=== PATIENT | male | born 1945 | race Caucasian/White ===

== ENCOUNTER 2016-12-12 19:10 | Inpatient (IN) ==
[2016-12-12] MEDS ORDERED: NS 1,000 ML IV PRN (19:37)
[2016-12-12] MEDS ORDERED: ZOFRAN IV ONE (19:37)
[2016-12-12 20:09] LABS: BASO% 0.1 % (0.0-0.8); HEMATOCRIT 42.2 % (42.0-52.0); HEMOGLOBIN 13.6 g/dL (14.0-18.0); IMM GRAN# 0.04 X1000 (0.0-0.04); IMM GRAN% 0.2 % (0.0-0.5); LYMPH# 1.21 X1000 (1.2-3.4); LYMPH% 7.1 % (20.5-51.1); MANUAL DIFF NEEDED? YES; MCH 27.5 PG (27-31); MCHC 32.2 g/dL (33-37); MCV 85.4 FL (81-99); MONO# 0.54 X1000 (0.11-0.59); MONO% 3.2 % (1.7-9.3); MPV 10.6 FL (7.4-10.4); NEUT% 89.4 % (42.2-75.2); PLT 286 X1000 (130-400); RBC 4.94 XMIL (4.7-6.1)
[2016-12-12 20:28] LABS: AGAP 15; ALBUMIN 4.1 g/dL (3.5-5.0); ALKALINE PHOSPHATASE 93 U/L (32-122); BUN 12 mg/dL (8-22); CALCIUM 9.6 mg/dL (8.8-10.2); CHLORIDE 102 mmol/L (98-107); COSMO 281; GOT 13 U/L (10-34); GPT 5 U/L (10-44); POTASSIUM 4.4 mmol/L (3.5-5.1); SODIUM 140 mmol/L (136-145); TCO2 23 mmol/L (25-35); TOTAL PROTEIN 7.6 g/dL (6.3-8.3)
[2016-12-12 20:39] LABS: LYMPHS 2 % (21-51)
[2016-12-12 20:41] LABS: HYPOCHROM OCCASIONAL
[2016-12-12] MEDS ORDERED: ZOSYN 3.375 GM/NS 3.375 GM/50 ML IVPB IV ONE (20:47)
[2016-12-12] MEDS ORDERED: NS 1,000 ML IV ONE (23:26)
[2016-12-12] MEDS ORDERED: ZOFRAN PO PRN (23:26)
[2016-12-12] MEDS ORDERED: LEVAQUIN 500 MG/D5W 500 MG/100 ML IVPB IV ONE (23:26)
[2016-12-12] MEDS ORDERED: TYLENOL PO PRN (23:26)
[2016-12-12] MEDS ORDERED: MORPHINE IV PRN (23:31)
--- NOTE | 2016-12-12 23:33 | PROVIDER DOCUMENTATION ---
This chart was entered by Silke Shukla Scribe, acting as scribe for Dallin Wen MD. HPI-Abdominal Pain/GI Problem - General Chief Complaint: Shortness of Breath Stated Complaint: N/V Time Seen by Provider: 12/12/16 19:26 Source: patient Allergies/Adverse Reactions: Patient Allergies Allergy/AdvReac Type Severity Reaction Status Date / Time No Known Allergies Allergy Verified 12/12/16 19:13 Home Medications: Home Medication List Medication Instructions Recorded Confirmed Last Taken Type Albuterol [Albuterol Neb] 1 inh NEB Q6H PRN PRN 12/12/16 12/12/16 12/12/16 History Aspirin 1 tab PO DAILY 12/12/16 12/12/16 12/12/16 History Fluticasone/Salmet 250/50 INH 1 inh INH Q4H 12/12/16 12/12/16 12/12/16 History [Advair 250/50 Diskus] [place]-3 Fatty Acids/Fish Oil 1 tab PO DAILY 12/12/16 12/12/16 12/12/16 History [[place] 3 1,000 mg Softgel] - History of Present Illness-ABD Nature of Presenting Problems: Pt is a 71 year old male who came to the ED with a cc of bright red blood in the toilet after having a loose bowel movement this morning. Pt reports he has been N/V and having blood in his bowels since this morning. Pt denies fever, chest pain, and chills. Abdominal Pain Onset Location: reports: generalized abdomen Quality of Pain: reports: sharp Onset/Duration: reports: this morning Timing: reports: intermittent Activities at Onset: reports: none Modifying Factors: improves with: nothing Associated Symptoms: reports: nausea, vomiting Last BM: this evening Dark Stools Present?: reports: bright red blood Rectal Bleeding: reports: bleeding without stool Rectal Pain: reports: none Review of Systems - Adult - REVIEW OF SYSTEMS - ADULT Constitutional: denies: chills, fever Eyes: reports: no symptoms reported Ears, Nose, Mouth & Throat: reports: no symptoms reported Cardiovascular: reports: no symptoms reported Respiratory: reports: shortness of breath. denies: chronic cough, excessive sputum production Gastrointestinal: reports: abdominal pain, nausea, rectal bleeding, vomiting. denies: diarrhea, difficulty swallowing, frequent heartburn Genitourinary: denies: dysuria, frequent UTI's Musculoskeletal: reports: no symptoms reported Integumentary: reports: no symptoms reported Neurological: reports: no symptoms reported Psychiatric: reports: no symptoms reported Endocrine: reports: no symptoms reported Hematologic/Lymphatic: reports: no symptoms reported Allergic/Immunologic: reports: no symptoms reported All Other Systems: Reviewed and Negative Past History - Adult - PAST MEDICAL HISTORY-ADULT Review of Records: reports: Nursing Assessment Review Major Childhood Illnesses: reports: denies history Cardiovascular: reports: denies history Respiratory: reports: COPD Gastrointestinal: reports: denies history Obstetrical/Gynecological: reports: denies history Genitourinary: reports: denies history Musculoskeletal: reports: denies history Neurological: reports: denies history Endocrine/Immune: reports: denies history Other Conditions: reports: denies history - IMMUNIZATION STATUS Childhood Immunizations: See Nurse Assessment Flu Vaccine: See Nurse Assessment - FAMILY HISTORY Family History: reviewed, not pertinent Physical Exam-General - PHYSICAL EXAM-ADULT Initial Vital Signs Reviewed: Yes - CONSTITUTIONAL General Appearance: appears well, alert, no apparent distress - EYES Eyes: PERRL/EOMI, pink conjunctivae - HEAD, EARS, NOSE, MOUTH & THROAT HENMT: normocephalic/atraumatic, moist mucous membranes - NECK Neck: non-tender - RESPIRATORY Respiratory: chest non-tender, crackles - CARDIOVASCULAR Cardiovascular: normal peripheral pulses, regular rate, rhythm - GASTROINTESTINAL (ABDOMEN) Abdominal Exam: normal bowel sounds, non tender, soft - MUSCULOSKELETAL Back Exam: normal inspection, no CVA tenderness Extremity: normal range of motion, non-tender - SKIN Integumentary: normal color, normal turgor - NEUROLOGIC Neurologic: grossly normal - PSYCHIATRIC Psych/Mental Status: normal mood/affect, normal thought content, normal thought process, oriented x 3 Progress - PLAN OF CARE/RESULTS Progress/Plan/Lab Results: Vital Signs - 8 hr 12/12/16 19:16 Temperature 99.1 F Pulse Rate 126 H Respiratory Rate 28 H Blood Pressure 127/92 O2 Sat by Pulse Oximetry 91 L Orders Category Date Time Status FLAT/UPRIGHT ABD/1 VIEW CHEST [RAD] Stat Exams 12/12/16 19:37 Ordered BNP [PRO B-NATRIURETIC PEPTIDE] Stat Lab 12/12/16 19:36 Ordered CBC WITH DIFF [HEME] Stat Lab 12/12/16 19:37 Ordered COMPREHENSIVE METABOLIC PANEL [CHEM] Stat Lab 12/12/16 19:37 Ordered TROPONIN T Stat Lab 12/12/16 19:37 Ordered 0.9% Sodium Chloride Inj [Ns] 1,000 ml Med 12/12/16 19:37 Active IV 250 mls/hr Ondansetron [Zofran] Med 12/12/16 19:37 Discontinued 4 mg IV NOW ONE EKG [EKG] Stat Ther 12/12/16 19:37 Ordered Result Diagrams: 12/12/16 19:55 12/12/16 19:55 - EKG 1 Time of EKG reading by physician:: 19:49 EKG Read and Signed by:: Dallin Wen EKG Interpretation (*Must complete 3 of following elements*): Abnormal Rate: 116 Rhythm: sinus tachycardia QRS: RBB - XRAY 1 XRAY Study: Chest (infiltrate) - CT/MRI 1 CT Study: Thorax (1. severe bullous emphysema 2. bibasilar airspace consolidations indicating pneumonia 3. mild stranding around a segment of the distal sigmoid w/ diverticula suggesting diverticulitits. no sign of perforation. 4. possible rectal thickening suggesting proctitis) Departure - Departure Date of Disposition Decision: 12/12/16 Time of Disposition Decision: 23:30 DIAGNOSIS: Diverticulitis large intestine w/o perforation or abscess w/bleeding, Pneumonia due to aerobic bacteria Disposition: ADMITTED INPATIENT 09 Certified Medical Emergency: Emergent Condition: Stable Referrals and Follow-Ups: Liam Smalls MD [Primary Care Provider] - - Critical Care Note This patient required my direct & personal management of CC.: No This chart was documented by the indicated scribe, (Silke Shukla Scribe) and accurately reflects the services I performed and decisions made by me, Dallin Wen MD, as attested by the provider's signature.
[2016-12-13] MEDS: DUONEB (A & A) INH SCH ×6 (00:42→15:13)
--- NOTE | 2016-12-13 01:36 | EKG Report ---
Test Performed on : 12/12/2016 7:49:41 PM Test Reason : pain Blood Pressure : / mmHG Vent. Rate : 116 BPM Atrial Rate : 116 BPM P-R Int : 154 ms QRS Dur : 132 ms QT Int : 338 ms P-R-T Axes : 084 097 067 degrees QTc Int : 469 ms Sinus tachycardia. Right bundle branch block Abnormal ECG No previous ECGs available Unconfirmed Result
--- NOTE | 2016-12-13 07:42 | Diag Imaging Result Doc PS360 ---
EXAM: FLAT/UPRIGHT ABD/1 VIEW CHEST HISTORY: abd pain TECHNIQUE: Three views COMPARISON: None. FINDINGS: The lungs are hyperexpanded. No cardiomegaly. No consolidation. No free air beneath the diaphragm. No bowel obstruction. No organomegaly. There is a calcification in the mid right abdomen. This measures 4 mm. The patient has scoliosis. IMPRESSION: 1.I believe the patient has emphysema 2.Right abdominal calcifications may be a right lower pole renal stone or could even be a gallstone. Electronically signed by Price Quinonez 12/13/2016 7:39 AM
--- NOTE | 2016-12-13 08:20 | Diag Imaging Result Doc PS360 ---
EXAM: THORAX/ABDOMEN/PELVIS W/O CONT - 12/12/2016 HISTORY: HEMATOCHEZIA, RIGHT LUNG CHANGES TECHNIQUE: Without contrast per request of the referring provider. Dose reduction protocol. COMPARISON: None. FINDINGS: There is severe bullous emphysema. There is airspace disease at the bilateral inferior lower lobes, is prominent on the right. This is suspicious for pneumonia. There is possibly some associated atelectasis at the right base. There is no substantial pleural effusion or pneumothorax identified. There are scattered calcified granulomas and there are calcified hilar mediastinal lymph nodes from old granulomatous disease. There are no substantial abnormalities of the liver, spleen, or pancreas identified. There is mild enlargement of bilateral adrenal glands which likely relates to hyperplasia. There are no densely calcified gallstones or pericholecystic inflammation identified. There is a 6-7 mm nonobstructing stone in the lower right kidney. There is no left renal stone identified. There is no hydronephrosis seen. There are no substantial enlarged lymph nodes identified. There are extensive atherosclerotic calcifications in the abdominal aorta and iliac arteries, and there are atherosclerotic calcifications of the proximal superior mesenteric artery. The infrarenal abdominal aorta is mildly ectatic at two 2.7 cm. There are bilateral L5 pars interarticularis defects with grade 2 L5-S1 spondylolisthesis noted. There is no evidence of bowel obstruction. There is diverticulosis of the distal sigmoid colon. There is apparent wall thickening along the sigmoid colon and rectum which is suspicious for distal colitis/proctitis. Superimposed mild diverticulitis of the distal sigmoid colon cannot be entirely excluded. There is no abscess identified. There is no free air. There is no substantial free fluid. There is an apparent 1.8 cm diverticulum which arises at the left posterior urinary bladder. IMPRESSION: Severe bullous emphysema. Bibasilar airspace disease, is prominent on the right, suspicious for pneumonia. Probable adrenal hyperplasia. 6-7 mm nonobstructing stone in right kidney. No hydronephrosis. Extensive atherosclerotic calcifications. Mild ectasia of infrarenal abdominal aorta at 2.7 cm. Bilateral L5 pars interarticularis defects with grade 2 L5-S1 spondylolisthesis. Colitis/proctitis at rectosigmoid colon. Superimposed mild diverticulitis at distal sigmoid colon cannot be entirely excluded. No abscess. No free air. The tape control skin or spar mill operator radiologist provided primary results at 10:03 PM on 12/12/2016. Electronically signed by Marek Leigh 12/13/2016 8:18 AM
[2016-12-13] MEDS: FLAGYL 750 MG in NS 150 ML IV SCH ×2 (09:48→21:51)
[2016-12-13 10:31] LABS: OCCULT BLOOD 1 POSITIVE (NEGATIVE)
[2016-12-13] MEDS ORDERED: NORCO-5 PO PRN (11:08)
[2016-12-13] MEDS: ADVAIR 250/50 DISKUS INH SCH (11:37)
[2016-12-13 11:44] LABS: MANUAL DIFF NEEDED? NO
[2016-12-13 11:50] LABS: BASO% 0.3 % (0.0-0.8); EOS# 0.15 X1000 (0.0-0.7); EOS% 1.3 % (0.0-10.0); HEMATOCRIT 35.6 % (42.0-52.0); HEMOGLOBIN 11.4 g/dL (14.0-18.0); IMM GRAN# 0.02 X1000 (0.0-0.04); IMM GRAN% 0.2 % (0.0-0.5); LYMPH# 2.15 X1000 (1.2-3.4); MCH 27.9 PG (27-31); MCV 87.3 FL (81-99); MONO# 0.84 X1000 (0.11-0.59); MONO% 7.4 % (1.7-9.3); NEUT% 71.8 % (42.2-75.2); PLT 252 X1000 (130-400); RBC 4.08 XMIL (4.7-6.1)
[2016-12-13 12:20] LABS: AGAP 9; ALBUMIN 3.4 g/dL (3.5-5.0); ALKALINE PHOSPHATASE 75 U/L (32-122); BUN 13 mg/dL (8-22); CALCIUM 8.8 mg/dL (8.8-10.2); CHLORIDE 105 mmol/L (98-107); COSMO 280; GOT 10 U/L (10-34); GPT < 5 U/L (10-44); POTASSIUM 4.1 mmol/L (3.5-5.1); SODIUM 140 mmol/L (136-145); TCO2 26 mmol/L (25-35); TOTAL PROTEIN 6.1 g/dL (6.3-8.3)
[2016-12-13] MEDS ORDERED: ZOFRAN ODT PO PRN (18:45)
[2016-12-13] MEDS ORDERED: NS 1,000 ML IV ONE (18:57)
[2016-12-13] MEDS ORDERED: NS 1,000 ML IV SCH (19:32)
[2016-12-13 19:34] LABS: MANUAL DIFF NEEDED? NO
[2016-12-13 19:46] LABS: BASO% 0.2 % (0.0-0.8); EOS# 0.26 X1000 (0.0-0.7); EOS% 1.7 % (0.0-10.0); HEMATOCRIT 37.7 % (42.0-52.0); HEMOGLOBIN 11.8 g/dL (14.0-18.0); IMM GRAN# 0.03 X1000 (0.0-0.04); IMM GRAN% 0.2 % (0.0-0.5); LYMPH# 2.15 X1000 (1.2-3.4); LYMPH% 14.1 % (20.5-51.1); MCH 27.3 PG (27-31); MCHC 31.3 g/dL (33-37); MCV 87.1 FL (81-99); MONO# 1.07 X1000 (0.11-0.59); MPV 10.6 FL (7.4-10.4); NEUT% 76.8 % (42.2-75.2); PLT 256 X1000 (130-400); RBC 4.33 XMIL (4.7-6.1)
[2016-12-13] MEDS: ALBUTEROL NEB INH PRN (21:49)
[2016-12-13] MEDS ORDERED: LEVAQUIN 500 MG/D5W 500 MG/100 ML IVPB IV ONE ×2 (21:58→22:00)
[2016-12-13] MEDS ORDERED: LEVAQUIN 250 MG/D5W 250 MG/50 ML IVPB IV SCH (22:00)
[2016-12-13] MEDS ORDERED: LEVAQUIN 500 MG/D5W 500 MG/100 ML IVPB IV SCH (22:00)
[2016-12-14] MEDS: ADVAIR 250/50 DISKUS INH SCH ×2 (02:34→07:57)
[2016-12-14 06:13] LABS: MANUAL DIFF NEEDED? NO
[2016-12-14] MEDS: ALBUTEROL NEB INH PRN (06:16)
[2016-12-14 06:17] LABS: BASO% 0.2 % (0.0-0.8); EOS# 0.31 X1000 (0.0-0.7); EOS% 2.6 % (0.0-10.0); HEMATOCRIT 35.3 % (42.0-52.0); HEMOGLOBIN 11.1 g/dL (14.0-18.0); IMM GRAN# 0.02 X1000 (0.0-0.04); IMM GRAN% 0.2 % (0.0-0.5); LYMPH# 1.85 X1000 (1.2-3.4); LYMPH% 15.4 % (20.5-51.1); MCH 27.7 PG (27-31); MCHC 31.4 g/dL (33-37); MONO# 0.88 X1000 (0.11-0.59); MONO% 7.3 % (1.7-9.3); MPV 10.6 FL (7.4-10.4); NEUT% 74.3 % (42.2-75.2); PLT 230 X1000 (130-400); RBC 4.01 XMIL (4.7-6.1)
[2016-12-14 06:48] LABS: AGAP 7; ALBUMIN 3.1 g/dL (3.5-5.0); ALKALINE PHOSPHATASE 76 U/L (32-122); BUN 11 mg/dL (8-22); CALCIUM 8.4 mg/dL (8.8-10.2); CHLORIDE 105 mmol/L (98-107); COSMO 279; GOT 12 U/L (10-34); GPT < 5 U/L (10-44); POTASSIUM 3.7 mmol/L (3.5-5.1); SODIUM 140 mmol/L (136-145); TCO2 29 mmol/L (25-35); TOTAL PROTEIN 6.2 g/dL (6.3-8.3)
[2016-12-14] MEDS ORDERED: FISH OIL CONCENTRATE PO SCH (09:00)
[2016-12-14] MEDS ORDERED: ASPIRIN PO SCH (09:00)
[2016-12-14] MEDS: FLAGYL 750 MG in NS 150 ML IV SCH (09:11)
[2016-12-14 11:38] VITALS: BP 122/89
--- NOTE | 2016-12-23 05:06 | HISTORY AND PHYSICAL ---
HISTORY OF PRESENT ILLNESS: This patient presented to the emergency room on the night of admission complaining of shortness of breath along with some nausea and vomiting. He is a 71-year- old man who stated that he had some bright red blood in the toilet after having a loose bowel movement earlier this morning and has been nauseated and vomiting and having blood in his bowels since this morning. He denies any fever, chills or chest pain. He was seen in the emergency room preliminarily and relates that this is a relatively new issue with him. He reports that he bleeds sometimes without having a stool and he bleeds on the stool. He has some associated nausea, vomiting, and he denies any significant abdominal pain. His last BM was the night prior to presentation. In the ER, his temperature was 99 degrees, pulse was 126 respiratory was 28, blood pressure 127/92. His O2 saturation was 91. He had a white count of 16,930, hematocrit of 42.2, platelet count 286,000. Sodium was 140, potassium 4.4, chloride 102, CO2 23, BUN 12, creatinine 0.8, glucose 131. He had an EKG or done which showed a right bundle branch and sinus tachycardia. His chest x-ray as read by the emergency room physician was interpreted to be having an infiltrate. They did a CT study thereafter, showed severe bullous emphysema, bibasilar airspace consolidation indicating pneumonia, mild stranding around the segment of the distal sigmoid with diverticula suggesting diverticulitis, no signs of perforation, possible rectal thickening suggesting proctitis. On the basis of these findings, the patient was admitted to the hospital. ALLERGIES: He has no known allergies. HOME MEDICINES: Albuterol 1 inhaler q.6 p.r.n., aspirin 1 tablet daily, Advair 250/500 one inhalation b.i.d., and 1 omega 3 fatty acid fish oil. PAST MEDICAL HISTORY: He has had a longstanding history of COPD secondary to smoking. He denies any history of cardiovascular disease, gastrointestinal disease, disease, musculoskeletal or neurological disease and no likewise. REVIEW OF SYSTEMS: General: He has no significant weight gain or weight loss. He denies any fevers or chills. Eyes: No changes in his vision or any irritation involving his eyes. No change in visual acuity. Ears, nose, and throat: No pharyngitis, otitis or sinusitis. Cardiovascular: Denies any chest pain, palpitations. No edema, PND, orthopnea, claudication. He does have exertional dyspnea. Respiratory: He is always short of breath. He has a chronic cough but does not cough up significant amounts of phlegm. Gastrointestinal: He denies any diarrhea, difficulty swallowing, frequent heartburn, but he has been having some abdominal pain primarily in his lower quadrants favoring the left. Nausea, vomiting with some rectal bleeding. Genitourinary: He denies dysuria, frequent UTIs. He has some LUTS symptoms secondary to benign prostatic hypertrophy. Musculoskeletal: No joint aches, joint swellings, myalgias. Skin: Clear. Neurological: No focal deficits. Psychiatric: No illnesses. Endocrine: No diabetes or thyroid disease. Hematologic/lymphatic: No bleeding or clotting disorder. No lymphadenopathy. Allergies: No symptoms of allergies. Otherwise negative. PHYSICAL EXAMINATION: VITAL SIGNS: His initial vital signs are already contained herein. GENERAL: He has a normal general appearance. He is alert, no apparent distress. EYES: PERRLA. EOMs intact. Sclerae clear. Fundi benign. Nares patent. Oropharynx negative. NECK: Supple. Bounding carotids without thyromegaly or lymphadenopathy. Midline trachea. CHEST: Increased AP diameter, diminished breath sounds, flattened diaphragms. CARDIOVASCULAR: Regular rhythm and rate. No murmurs, gallops, clicks, or rubs. Peripheral pulses were palpable. ABDOMEN: Soft, somewhat tender in the left lower quadrant. BACK: Normal to inspection. No CVA tenderness. EXTREMITIES: Negative clubbing, cyanosis or edema. SKIN: Clear. NEUROLOGIC: Exam was symmetrical. ADMITTING DIAGNOSIS: 1. Pneumonia. 2. Probable diverticulitis superimposed on chronic obstructive pulmonary disease. PLAN: He is admitted to be treated with antibiotics that would work both for his diverticulitis and his pneumonia, and was given some IV saline in the ER 250 per hour and some Zofran to combat his nausea, and he was admitted. cc: Liam Smalls MD
== END 2016-12-14 14:06 | disposition home or self-care (01) ==
LOC: P.ED 19:10 → P.MEDSURG 23:39
PROVIDERS: ADMIT Internal Medicine; ATTEND Internal Medicine